=== PATIENT | female | born 1955 | race African-American/Black ===

== ENCOUNTER 2019-07-03 11:48 | Inpatient (IN) | payer MEDICAID, OTHER ==
[~2019-07-03] VITALS: Ht 157.5 cm; Wt 84.4 kg
[2019-07-03] MEDS ORDERED: SODIUM CHLORIDE 0.9% 1,000 ML IV ONE (12:30)
[2019-07-03 12:51] LABS: BG BASE EXCESS -3.7 mmol/L (-2.0-2.0); BG CARBOXYHEMOGLOBIN 0.7 % (0.5-1.5); BG DEOXYHEMOGLOBIN 7.6 % (0.0-5.0); BG FRACTION INSPIRED OXYGEN 21; BG HCO3 ACT 20.2 mmol/L (22.0-26.0); BG METHEMOGLOBIN 0.3 % (0.0-1.5); BG OXYGEN SATURATION 92.3 % (92.0-98.5); BG OXYHEMOGLOBIN 91.4 % (94.0-97.0); BG PCO2 32.9 mmHg (35.0-45.0); BG PH 7.405 (7.350-7.450); BG PO2 63.3 mmHg (75.0-100.0); BG SAMPLE SITE RIGHT BRACHIAL; BG TOTAL HEMOGLOBIN 12.4 g/dL (12.0-18.0); BG VENT MODE ROOM AIR
[2019-07-03 13:15] LABS: HEMATOCRIT. 38.1 % (36.0-48.0); HEMOGLOBIN. 12.1 g/dL (12.0-16.0); MEAN CORPUSCULAR VOLUME 94.3 fL (81.0-99.0); MEAN PLATELET VOLUME 9.5 fl (7.4-10.4); PLATELET 155 x1000/uL (130-400); RED BLOOD CELL COUNT 4.04 mill/uL (4.2-5.4); RED CELL DISTRIBUTION WIDTH 16.7 % (11.6-14.6)
[2019-07-03 13:21] LABS: CHLORIDE 116 mEq/L (98-107)
[2019-07-03 13:26] LABS: D-DIMER 1.93 mg/L FEU (<0.50); PARTIAL THROMBOPLASTIN TIME 33.6 sec (23.4-31.0); PROTHROMBIN TIME 10.4 sec (9.6-11.0)
[2019-07-03 13:35] LABS: ATYPICAL LYMPHOCYTES 1; PLATELET ESTIMATE NORMAL
[2019-07-03 14:07] LABS: ETHANOL BLOOD < 10 mg/dL
[2019-07-03 15:03] LABS: CLARITY URINE TURBID (CLEAR); KETONES URINE NEGATIVE (NEGATIVE); LEUKOCYTE ESTERASE URINE 2+ (NEGATIVE); NITRITE URINE NEGATIVE (NEGATIVE); OCCULT BLOOD URINE NEGATIVE (NEGATIVE); PH URINE 8.5 (4.5-8.0); PROTEIN URINE 3+ (NEGATIVE); SPECIFIC GRAVITY URINE 1.016 (1.005-1.030); UROBILINOGEN URINE 0.2 E.U./dL (0.2-1.0)
[2019-07-03 15:06] LABS: COLOR URINE DARK YELLOW (YELLOW)
[2019-07-03 15:37] LABS: *AMPHETAMINES SCREEN URINE NEGATIVE (NEGATIVE); *BARBITURATES SCREEN URINE NEGATIVE (NEGATIVE); *BENZODIAZEPINES SCREEN URINE NEGATIVE (NEGATIVE); *COCAINE SCREEN URINE PRESUMTIVE POSITIVE (NEGATIVE); CANNABINOID URINE SCREEN NEGATIVE (NEGATIVE); METHADONE URINE SCREEN NEGATIVE (NEGATIVE); PHENCYCLIDINE URINE SCREEN PRESUMTIVE POSITIVE (NEGATIVE)
[2019-07-03 15:38] LABS: OPIATES URINE SCREEN NEGATIVE (NEGATIVE)
[2019-07-03] MEDS ORDERED: ACETAMINOPHEN 500MG TABLET PO ONE (16:30)
[2019-07-03] MEDS ORDERED: DOCUSATE SODIUM 100MG CAPSULE PO PRN (18:45)
[2019-07-03] MEDS ORDERED: DIPHENHYDRAMINE 50MG/ML VIAL IV PRN (18:45)
[2019-07-03] MEDS ORDERED: IPRATROPIUM/ALBUTEROL 0.5-3(2.5)MG/3ML NEB HHN PRN (18:45)
[2019-07-03] MEDS ORDERED: MAGNESIUM/ALUMINUM HYDROXIDE/SIMETHICONE 30ML UDC PO PRN (18:45)
[2019-07-03] MEDS ORDERED: GUAIFENESIN 200MG/10ML SUGAR FREE UDC PO PRN (18:45)
[2019-07-03] MEDS ORDERED: CLONIDINE 0.1MG TABLET PO PRN (18:45)
[2019-07-03] MEDS ORDERED: ONDANSETRON HCL 4MG/2ML INJ IV PRN (18:45)
[2019-07-03 19:20] LABS: PHOSPHORUS 3.3 mg/dL (2.5-4.9)
[2019-07-03] MEDS ORDERED: IOHEXOL-350 100 ML BOTTLE ONE (19:30)
[2019-07-03 20:38] VITALS: BP 140/89
[2019-07-03 20:40] VITALS: BP 140/89
[2019-07-03] MEDS: ENOXAPARIN 40MG/0.4ML SYR SUBCUT SCH (21:08)
[2019-07-03] MEDS ORDERED: CEFTRIAXONE 1,000 MG in DEXTROSE 5% WATER 50 ML IV SCH (22:00)
[2019-07-03] MEDS: CEFTRIAXONE 1,000 MG in DEXTROSE 5% WATER 50 ML IV SCH (22:22)
[2019-07-03] MEDS ORDERED: ASPI-1393 PO (23:37)
[2019-07-03] MEDS ORDERED: LEVO50TA8 PO (23:37)
[2019-07-03] MEDS ORDERED: LISI-186 PO (23:37)
[2019-07-03] MEDS ORDERED: OMEP20TA2 PO (23:37)
[2019-07-04 00:05] VITALS: BP 120/63
[2019-07-04 04:00] VITALS: BP 111/59
[2019-07-04 07:57] LABS: BASOPHILS % 0.9 % (0.0-2.0); EOSINOPHILS % 1.2 % (0.0-5.0); HEMATOCRIT. 33.6 % (36.0-48.0); LYMPHOCYTES % 50.4 % (20.0-50.0); MEAN CORPUSCULAR HEMOGLOBIN 30.4 pg (28.0-32.0); MEAN CORPUSCULAR VOLUME 92.5 fL (81.0-99.0); MEAN PLATELET VOLUME 9.3 fl (7.4-10.4); MONOCYTES % 8.1 % (2.0-8.0); NEUTROPHILS % 39.4 % (40.0-76.0); PLATELET 158 x1000/uL (130-400); RED BLOOD CELL COUNT 3.63 mill/uL (4.2-5.4)
[2019-07-04 08:00] VITALS: BP 155/75
[2019-07-04 08:07] LABS: CHLORIDE 114 mEq/L (98-107)
[2019-07-04 08:24] LABS: LDL CHOLESTEROL 70 mg/dL (5-100)
[2019-07-04 08:25] LABS: HDL CHOLESTEROL 55 mg/dL (40-59)
[2019-07-04 12:00] VITALS: BP 124/66
[2019-07-04] MEDS: AMLODIPINE 5MG TABLET PO SCH (13:06)
[2019-07-04] MEDS ORDERED: IOHEXOL-350 100 ML BOTTLE ONE (14:16)
[2019-07-04 16:00] VITALS: BP 129/75
[2019-07-04] MEDS: HYDROCODONE/ACETAMINOPHEN 5/325MG TABLET PO PRN ×2 (16:50→21:02)
[2019-07-04 17:41] LABS: T4 FREE 0.27 ng/dL (0.76-1.46)
[2019-07-04 20:00] VITALS: BP 133/76
[2019-07-04] MEDS: ENOXAPARIN 40MG/0.4ML SYR SUBCUT SCH (21:01)
[2019-07-04] MEDS: CEFTRIAXONE 1,000 MG in DEXTROSE 5% WATER 50 ML IV SCH (22:27)
[2019-07-05 00:05] VITALS: BP 137/71
[2019-07-05 04:00] VITALS: BP 106/70
[2019-07-05 08:00] VITALS: BP 127/67
[2019-07-05] MEDS: AMLODIPINE 5MG TABLET PO SCH (08:48)
[2019-07-05] MEDS: ACETAMINOPHEN 325MG TABLET PO PRN ×2 (08:50→18:59)
[2019-07-05] MEDS: ASPIRIN 81MG TABLET PO SCH (11:06)
[2019-07-05] MEDS: LEVOTHYROXINE SODIUM 50MCG TABLET PO SCH (11:06)
[2019-07-05 12:00] VITALS: BP 131/89
[2019-07-05 16:00] VITALS: BP 126/68
[2019-07-05 20:00] VITALS: BP 120/67
[2019-07-05] MEDS: ENOXAPARIN 40MG/0.4ML SYR SUBCUT SCH (20:32)
[2019-07-05] MEDS: HYDROCODONE/ACETAMINOPHEN 5/325MG TABLET PO PRN (20:32)
[2019-07-05] MEDS: CEFTRIAXONE 1,000 MG in DEXTROSE 5% WATER 50 ML IV SCH (21:09)
[2019-07-06 00:05] VITALS: BP 107/63
[2019-07-06 04:00] VITALS: BP 128/71
[2019-07-06 07:36] LABS: BASOPHILS % 1.3 % (0.0-2.0); EOSINOPHILS % 2.2 % (0.0-5.0); HEMATOCRIT. 33.5 % (36.0-48.0); HEMOGLOBIN. 10.9 g/dL (12.0-16.0); LYMPHOCYTES % 48.3 % (20.0-50.0); MEAN CORPUSCULAR HEMOGLOBIN 30.4 pg (28.0-32.0); MEAN CORPUSCULAR VOLUME 93.2 fL (81.0-99.0); MEAN PLATELET VOLUME 9.7 fl (7.4-10.4); MONOCYTES % 11.7 % (2.0-8.0); NEUTROPHILS % 36.5 % (40.0-76.0); PLATELET 148 x1000/uL (130-400); RED BLOOD CELL COUNT 3.59 mill/uL (4.2-5.4); RED CELL DISTRIBUTION WIDTH 16.1 % (11.6-14.6)
[2019-07-06 07:44] LABS: CHLORIDE 109 mEq/L (98-107)
[2019-07-06] MEDS: ASPIRIN 81MG TABLET PO SCH (09:36)
[2019-07-06] MEDS: LEVOTHYROXINE SODIUM 50MCG TABLET PO SCH (09:37)
[2019-07-06] MEDS: AMLODIPINE 5MG TABLET PO SCH (09:40)
[2019-07-06 12:00] VITALS: BP 118/82
[2019-07-06 16:00] VITALS: BP_SYST 103; BP_SYST 111; BP_SYST 95; BP_DIAS 64; BP_DIAS 66; BP_DIAS 72
[2019-07-06 20:00] VITALS: BP 135/85
[2019-07-06] MEDS: ENOXAPARIN 40MG/0.4ML SYR SUBCUT SCH (20:43)
[2019-07-06] MEDS: ZOLPIDEM TARTRATE 5MG TABLET PO PRN (20:43)
[2019-07-06] MEDS: ACETAMINOPHEN 325MG TABLET PO PRN (20:49)
[2019-07-07] VITALS: BP 128/80
[2019-07-07 04:00] VITALS: BP_SYST 122; BP_SYST 123; BP_SYST 126; BP_DIAS 60; BP_DIAS 68
[2019-07-07] MEDS: LEVOTHYROXINE SODIUM 75MCG TABLET PO SCH (06:45)
[2019-07-07] MEDS ORDERED: LEVOTHYROXINE SODIUM 100MCG TABLET PO SCH (07:40)
[2019-07-07 08:00] VITALS: BP 130/70
[2019-07-07] MEDS: ASPIRIN 81MG TABLET PO SCH (09:07)
[2019-07-07] MEDS: AMLODIPINE 5MG TABLET PO SCH (09:08)
[2019-07-07] MEDS: HYDROCODONE/ACETAMINOPHEN 5/325MG TABLET PO PRN (09:09)
[2019-07-07] MEDS: ACETAMINOPHEN 325MG TABLET PO PRN (18:39)
[2019-07-07 20:00] VITALS: BP 129/77
[2019-07-07] MEDS: ENOXAPARIN 40MG/0.4ML SYR SUBCUT SCH (20:12)
[2019-07-07] MEDS: ZOLPIDEM TARTRATE 5MG TABLET PO PRN (20:31)
[2019-07-07] MEDS ORDERED: IOHEXOL-350 100 ML BOTTLE ONE (22:13)
[2019-07-08] VITALS: BP 109/76
[2019-07-08 04:00] VITALS: BP_SYST 109; BP_SYST 117; BP_SYST 119; BP_DIAS 67; BP_DIAS 72
[2019-07-08] MEDS: LEVOTHYROXINE SODIUM 75MCG TABLET PO SCH (06:29)
[2019-07-08 07:31] LABS: BASOPHILS % 1.1 % (0.0-2.0); EOSINOPHILS % 1.9 % (0.0-5.0); HEMATOCRIT. 34.2 % (36.0-48.0); HEMOGLOBIN. 11.1 g/dL (12.0-16.0); LYMPHOCYTES % 39.4 % (20.0-50.0); MEAN CORPUSCULAR HEMOGLOBIN 30.3 pg (28.0-32.0); MEAN PLATELET VOLUME 9.2 fl (7.4-10.4); MONOCYTES % 10.4 % (2.0-8.0); NEUTROPHILS % 47.2 % (40.0-76.0); PLATELET 165 x1000/uL (130-400); RED BLOOD CELL COUNT 3.68 mill/uL (4.2-5.4)
[2019-07-08 08:19] VITALS: BP 124/66
[2019-07-08] MEDS: AMLODIPINE 5MG TABLET PO SCH (08:57)
[2019-07-08] MEDS: ASPIRIN 81MG TABLET PO SCH (08:57)
[2019-07-08 11:38] VITALS: BP 112/72
[2019-07-08] MEDS ORDERED: LEVO75TA7 PO (12:44)
[2019-07-08] MEDS ORDERED: FURO40TA5 MT (12:44)
[2019-07-08] MEDS ORDERED: LOSA25TA26 MT (12:44)
[2019-07-08] MEDS ORDERED: AMLO5TAB88 PO (12:44)
[2019-07-08 16:36] VITALS: BP 121/64
[2019-07-08] MEDS: HYDROCODONE/ACETAMINOPHEN 5/325MG TABLET PO PRN (16:40)
[2019-07-08 17:54] VITALS: BP 121/64
== END 2019-07-08 19:18 | disposition home or self-care (01) | DRG 48 ==
LOC: EDBD 11:48 → ER 11:48 → 7WST 17:50 → EDBEDREQ 17:53 → ENRESERV 18:12
PROVIDERS: ADMIT Internal Medicine; ATTEND Internal Medicine
DX: G90.8 Other disorders of autonomic nervous system (principal); I42.9 Cardiomyopathy, unspecified; I11.0 Hypertensive heart disease with heart failure; I50.22 Chronic systolic (congestive) heart failure; Z93.6 Other artificial openings of urinary tract status; D64.9 Anemia, unspecified; E11.9 Type 2 diabetes mellitus without complications; N39.0 Urinary tract infection, site not specified; R55 Syncope and collapse; D72.821 Monocytosis (symptomatic); E03.9 Hypothyroidism, unspecified; E78.00 Pure hypercholesterolemia, unspecified; F14.10 Cocaine abuse, uncomplicated; I35.1 Nonrheumatic aortic (valve) insufficiency; K59.00 Constipation, unspecified; E78.5 Hyperlipidemia, unspecified; Z86.73 Personal history of transient ischemic attack (TIA), and cerebral infarction without residual deficits; Z86.79 Personal history of other diseases of the circulatory system; Z90.710 Acquired absence of both cervix and uterus; Z93.3 Colostomy status; Z79.890 Hormone replacement therapy; Z85.42 Personal history of malignant neoplasm of other parts of uterus; Z87.891 Personal history of nicotine dependence; Z79.899 Other long term (current) drug therapy; Z79.82 Long term (current) use of aspirin
CPT/HCPCS: 36415; 36600; 70496; 70498; 71045; 71275; 80048; 80061; 80305; 80320; 81003; 82375; 82805; 82962; 83605; 83735; 83880; 84100; 84439; 84443; 84481; 84484; 85379; 93005; 93306; 93880; 93970; 96372; 97116; 97162; 99285; A6261; J0696; J1650; J7030; J7060; Q9967; G0480